=== PATIENT | female | born 2000 | race Two or more races ===

== ENCOUNTER 2023-07-28 11:54 | Emergency (ER) | payer MEDICAID, OTHER ==
[~2023-07-28] VITALS: Ht 172.7 cm; Wt 108.6 kg
[2023-07-28 13:18] VITALS: BP 110/74; PULSE 98; RESP 18; TEMP 97.8; O2SAT 99
[2023-07-28 13:39] LABS: Urine WBC None Seen /hpf (0 - 5)
[2023-07-28 14:02] LABS: Urine Bacteria FEW /hpf (None Seen); Urine Blood Negative /uL (Negative); Urine Clarity Clear (Clear); Urine Protein, UAD Negative (Negative); Urine Specific Gravity 1.016 (1.001-1.035); Urine Urobilinogen Normal (Negative); Urine pH 5.5 (5.0-8.0)
[2023-07-28 14:16] LABS: Urine Color Straw (Yellow)
== END 2023-07-28 15:43 | disposition home or self-care (01) ==
LOC: ER 11:54
DX: O26.891 Other specified pregnancy related conditions, first trimester (principal); R10.2 Pelvic and perineal pain; N89.8 Other specified noninflammatory disorders of vagina; Z3A.01 Less than 8 weeks gestation of pregnancy
CPT/HCPCS: 36415; 81001; 84702